=== PATIENT | male | born 1930 | race Hispanic/Latino ===

== ENCOUNTER 2017-04-14 08:08 | Day surgery (SDC) | payer MEDICARE ==
[2016-02-10 08:45] VITALS: BMI 24.0
[2017-04-14] MEDS ORDERED: Lidocaine 2% w Epi 1:100,000 Inj IJ ONE (10:13)
[2017-04-14 11:41] VITALS: BP 128/81; PULSE 73; RESP 18; TEMP 97.8; O2SAT 98
--- NOTE | 2017-04-14 13:23 | PCM.SURG1 ---
Surgeon's Initial Post Op Note - Surgeon's Notes Surgeon: Dr. Rios Clerical Order Filler: Adal PGY1 Type of Anesthesia: Local Pre-Operative Diagnosis: L scalp/R neck/R thigh skin lesions Operative Findings: see operative report Post-Operative Diagnosis: L scalp/R neck/R thigh skin lesions Operation Performed: Excision of L scalp/R neck/R thigh skin lesions Specimen/Specimens Removed: L scalp/R neck/R thigh skin lesions (5 total) Estimated Blood Loss: EBL {In ML}: 5 Blood Products Given: N/A Drains Used: No Drains Post-Op Condition: Good Date of Surgery/Procedure: 04/14/17 Time of Surgery/Procedure: 10:00
--- NOTE | 2017-04-14 20:06 | OP ---
PROCEDURE DATE: 04/14/2017 PREOPERATIVE DIAGNOSIS: Multiple skin lesions, appears to be keratotic areas; one in the scalp, three on the right side of the neck and one on the right anterior mid thigh. FINDINGS: On the scalp, there is a small lesion about 0.5 cm in size with surrounding rough area. This is located on the left frontoparietal area. There were three lesions on the neck area adjacent which are measuring approximately 1 cm in size, the largest one probably about 1 cm. These appears to be keratotic lesions, but there are some melanotic changes, especially the largest one on the most medial aspect. The one on the left thigh is a rough elevated area with a history of persistent or intermittent bleeding. DESCRIPTION OF PROCEDURE: Under local anesthesia, utilizing lidocaine 2% with epinephrine, patient was prepared and draped in usual sterile fashion. First the lesion in the scalp was marked, local anesthetic was injected. A wedge portion of the scalp surrounding the lesion was then excised all the way to the fourth layer of the scalp. The bleeding was controlled with some pressure and then the wound one was closed with multiple subcuticular sutures of 4-0 Monocryl. No bleeding was noted at the end of this part of procedure. Attention was then focused on the three lesions on the side of the neck where a circumferential incision was made around the lesions and the wound closed with a pursestring suture of 4-0 Monocryl. This was done similarly among the three lesions in that area. Attention was then focused on left thigh where a similar procedure was employed. All the lesions were identified as to the locations for identification purposes. Estimated blood loss for the entire procedure probably approximates close to 5 mL. Patient tolerated the procedure well and left the operating room in good condition. Braxton Rios MD
== END 2017-04-14 11:45 | disposition home or self-care (01) ==
LOC: C.SDS 08:08
PROVIDERS: ATTEND Surgery
DX: L82.1 Other seborrheic keratosis (principal)

== ENCOUNTER 2018-01-30 12:27 | Day surgery (SDC) | payer MEDICARE ==
[2018-01-30] MEDS ORDERED: Lidocaine/Epinephrine 1% 1:100000 10 ML IJ ONE (12:50)
[2018-01-30 13:00] VITALS: BMI 24.7
[2018-01-30] MEDS ORDERED: Lidocaine 2% w Epi 1:100,000 Inj IJ ONE (13:23)
[2018-01-30 14:26] VITALS: BP 133/80; PULSE 71; RESP 16; TEMP 97.2; O2SAT 98
--- NOTE | 2018-01-31 01:23 | OP ---
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 FINDINGS: There is a small red ulcerated area located just about level of the clavicle at the base of the neck on the left side, also just above it is a dark keratotic lesion suggestive of seborrheic keratosis which is very superficial. DESCRIPTION OF PROCEDURE: Under local anesthesia utilizing lidocaine 2% with epinephrine, the patient was prepared and draped in a sterile fashion. A wide excision was made on the basal cell carcinoma. Bleeding was controlled pressure. Then, the wound was then closed with interrupted sutures of 4-0 Vicryl subcuticularly. Dermabond was applied on the surface. Attention was then focused on the area of the keratosis on the left side of the neck overlying the external jugular vein. This measures approximately 4 x 5 mm in size. It is slightly elevated. With very low voltage on the electrocautery, the area was then electrocoagulated, and then layer by layer was peeled off the epidermis. No bleeding was noted. The wound was then covered with Dermabond and then dressed. No complications. Braxton Rios MD
== END 2018-01-30 14:15 | disposition home or self-care (01) ==
LOC: C.SDS 12:27
PROVIDERS: ATTEND Surgery
DX: L82.1 Other seborrheic keratosis (principal)

== ENCOUNTER 2018-06-12 11:14 | Observation (INO) | payer MEDICARE ==
--- NOTE | 2018-06-12 11:17 | C.PDOC ---
History Of Present Illness 87 y/o male,w/PMhx of HTN,hypercholesterolemia, CKD, and PAC's, presents to the ER complaining of left shoulder pain s/p fall 1 hr [employer]. Patient states that he was walking in his apartment building lobby when he slipped on some newspapers on the ground. Patient reports that he fell and he hit his left head and left shoulder. He notes that he is concerned his shoulder may be dislocated.Denies having LOC, headache, dizziness, CP,SOB, neck pain, elbow/wrist pain, hip pain,knee pain, and blood thinner use. Time Seen by Provider: 06/12/18 11:17 Chief Complaint (Nursing): Upper Extremity Problem/Injury History Per: Patient History/Exam Limitations: no limitations Onset/Duration Of Symptoms: Hrs Current Symptoms Are (Timing): Still Present Severity: Moderate Past Medical History Reviewed: Historical Data, Nursing Documentation, Vital Signs - Medical History PMH: Arthritis, Cardia Arrhythmia (hx PAC NO LONGER), HTN, Hypercholesterolemia, Chronic Kidney Disease Surgical History: Endoscopy - [facility] Procedures ANESTH INJECT SYMP NERVE (05/12/14) ANGIOPLASTY OF OTHER NON-CORONARY VESSEL(S) (04/09/13) INJECT STEROID (05/12/14) INSEJ [id number] PERIPHERAL NON-CORONARY VES STENT(S) (04/09/13) INSERTION OF ONE VASCULAR STENT (04/09/13) LUMBOSAC SPINE X-RAY NEC (05/12/14) PHYSICAL THERAPY NEC (04/23/14) PROCEDURE ON SINGLE VESSEL (04/09/13) RADICAL EXCIS SKIN LES (06/20/13) RESECTION OF PELVIS LYMPHATIC, PERC ENDO APPROACH (11/30/15) RESECTION OF PROSTATE, PERCUTANEOUS ENDOSCOPIC APPROACH (11/30/15) ROBOTIC ASSISTED PROCEDURE OF TRUNK, PERC ENDO APPROACH (11/30/15) SPINAL CANAL INJECT NEC (05/12/14) SYMPATH NERVE INJECT NEC (05/12/14) Family History: States: No Known Family Hx - Social History Hx Alcohol Use: No Review Of Systems Constitutional: Negative for: Fever, Chills, Weakness, Malaise Eyes: Negative for: Pain, Vision Change ENT: Negative for: Ear Pain, Ear Discharge, Mouth Pain, Mouth Swelling Cardiovascular: Negative for: Chest Pain, Palpitations, Edema Respiratory: Negative for: Cough, Shortness of Breath, SOB with Excertion Gastrointestinal: Negative for: Nausea, Vomiting, Abdominal Pain, Diarrhea, Constipation, Melena, Hematochezia, Hematemesis Genitourinary: Negative for: Dysuria, Frequency Musculoskeletal: Positive for: Shoulder Pain (left shoulder pain). Negative for: Neck Pain Skin: Negative for: Rash, Lesions Neurological: Negative for: Weakness, Numbness, Headache Physical Exam - Physical Exam Appears: Well, Non-toxic, No Acute Distress Skin: Warm, Dry Head: Atraumatic, Normacephalic, No Tenderness, No Swelling, No Abrasion, No Laceration Eye(s): bilateral: Normal Inspection, PERRL, EOMI Nose: Normal Oral Mucosa: Moist Tongue: Normal Appearing Lips: Normal Appearing Teeth: Normal Dentition Gingiva: Normal Appearing Throat: Normal, No Erythema, No Exudate, No Drooling Neck: Normal, Normal ROM, No Midline Cervical Tenderness, Supple, Other (no midline tenderness) Lymphatic: Normal Exam Chest: Symmetrical Cardiovascular: Rhythm Regular, No Edema, No Murmur, No JVD Respiratory: Normal Breath Sounds, No Rales, No Rhonchi, No Wheezing Gastrointestinal/Abdominal: Normal Exam, Soft, No Tenderness, No Distention, No Guarding, No Rebound Back: Normal Inspection, No CVA Tenderness, No Vertebral Tenderness, No Muscle Spasm, No Paraspinal Tenderness Extremity: Tenderness (point tenderness to lateral aspect of left shoulder), No Calf Tenderness, Capillary Refill (normal), No Swelling, Other (n/v intact distally to LUE) Pulses: Left Radial: Normal, Right Radial: Normal Neurological/Psych: Oriented x3, Normal Speech, Normal Cognition, Normal Motor, Normal Sensation Gait: Steady ED Course And Treatment - Laboratory Results Result Diagrams: 06/12/18 11:51 06/12/18 11:51 - Other Rad X-Ray-Left Shoulder X-Ray: Viewed By Me, Read By Radiologist Interpretation: Date of service: 06/12/2018. PROCEDURE: Radiographs of the Left Shoulder. HISTORY: L shoulder pain s/p mech fall. COMPARISON: No prior. FINDINGS: BONES: Humeral head/tuberosity mildly comminuted fractures no displacement greater than 1 to 2 mm in size is suggested. No dislocation noted. Thoracic spondylosis. JOINTS: Glenohumeral and acromioclavicular arthrosis. SOFT TISSUES: Normal. OTHER FINDINGS: None. IMPRESSION: Humeral head tuberosity mildly comminuted fractures without significant displacement. No dis location. Arthrosis as above. Other findings as above. - CT Scan/US CT-Head Other Rad Studies (CT/US): Read By Radiologist, Radiology Report Reviewed CT/US Interpretation: Date of service: 06/12/2018. PROCEDURE: CT HEAD WITHOUT CONTRAST. HISTORY: fall. COMPARISON: None available. TECHNIQUE: Axial computed tomography images were obtained through the head/brain without intravenous contrast. Radiation dose: Total exam DLP = 974.84 mGy-cm. This CT exam was performed using one or more of the following dose reduction techniques: Automated exposure control, adjustment of the mA and/or kV according to patient size, and/or use of iterative reconstruction technique. FINDINGS: HEMORRHAGE: No intracranial hemorrhage. BRAIN: Diffuse atrophy with prominence of the ventricles and sulci noted. No mass effect or edema. Intracranial atherosclerosis. Mild scattered white matter hypodensities, which are no nspecific, but often seen with chronic microvascular ischemic disease. Please note that MRI with diffusion imaging is more sensitive in the detection of acute ischemic event. VENTRICLES: No hydrocephalus. CALVARIUM: Unremarkable. PARANASAL SINUSES: Small mucosal polyp or retention cyst in the right maxillary sinus. The limited visualized paranasal sinuses appear otherwise clear. MASTOID AIR CELLS: Unremarkable as visualized. No inflammatory changes. OTHER FINDINGS: Partial opacification of the external auditory canals, likely cerumen. IMPRESSION: No acute intracranial pathology identified. Findings as above. CT-Upper Extremity Other Rad Studies (CT/US): Read By Radiologist, Radiology Report Reviewed CT/US Interpretation: Date of service: 06/12/2018. PROCEDURE: CT of the left shoulder. HISTORY: Left shoulder pain s/p fall. COMPARISON: Comparison made with prior radiographs left shoulder earlier same day. TECHNIQUE: Contiguous axial images of the left shoulder were obtained. Coronal and sagittal reformats were generated. Radiation dose: Total exam DLP = 426.84 mGy-cm. This CT exam was performed using one or more of the following dose reduction techniques: Automated exposure control, adjustment of the mA and/or kV according to patient size, and/or use of iterative reconstruction technique. FINDINGS: BONES: Redemonstrated is comminuted fracture of the left humeral head and surgical neck.. There is slight dorsal angulation of the larger distal humeral fragment with respect to the humeral head. The left humeral head is appropriately located with respect to the glenoid with no evidence of dislocation.. LEFT HIP JOINT: Unremarkable. No dislocation. No degenerative changes. SOFT TISSUES: There is mild infiltration changes within the surrounding adjacent soft tissues consistent with edema and possibly some post traumatic hemorrhage.. Note is made of mild atelectasis seen in the left lateral lower lung field and left lung base. IMPRESSION: Comminuted fracture of the left humeral head and surgical neck. There is slight dorsal angulation of the larger distal humeral fragment with respect to the humeral head. The left humeral head is appropriately located with respect to the glenoid with no evidence of dislocation. Medical Decision Making Medical Decision Makin87 y/o male,w/PMhx of HTN,hypercholesterolemia, CKD, and PAC's, presents to the ER complaining of left shoulder pain s/p fall 1 hr [employer]. N/V intact distally, no snuffbox pain, wrist pain or elbow pain. L shoulder ttp. Neck clear via nexus. No chest pain or abdominal pain. No hip pain. Good capillary refill. Impression: Left Shoulder Fracture vs. Dislocation Plan: --Labs --CT-Head --X-Ray-Left Shoulder --Morphine IV 1:30pm L Comminuted Shoulder fx, no dislocation on xray Paged Dr. Molina for consult Appreciate consult W/ Dr. Sheets: to admit to his service Pt in [facility], agreeable to plan. remains N/V intact to LUE, good strength 2:30 Appreciate consultation w/ Dr. Molina: CT reccomended. Ct ordered, L shoulder immoblizer ordered pt in NAD, agreeable to plan Disposition - Disposition Disposition: HOSPITALIZED Disposition Time: 13:54 Condition: GOOD - Clinical Impression Clinical Impression: Shoulder fracture, left - Scribe Statement The provider has reviewed the documentation as recorded by the Moe Rodriguez Provider Attestation: All medical record entries made by the Moe were at my direction and personally dictated by me. I have reviewed the chart and agree that the record accurately reflects my personal performance of the history, physical exam, medical decision making, and the department course for this patient. I have also personally directed, reviewed, and agree with the discharge instructions and disposition.
[2018-06-12 11:31] VITALS: BMI 25.4
[2018-06-12] MEDS ORDERED: Morphine 4 MG/ML VIAL ONE ×2 (11:35→13:33)
[2018-06-12 11:57] LABS: BASO % 0.7 % (0.0-2.0); EOS # 0.3 K/uL (0.0-0.7); EOS % 4.2 % (0.0-4.0); HEMOGLOBIN 14.2 g/dL (12.0-18.0); LYMPH # 2.1 K/uL (1.0-4.3); LYMPH % 33.5 % (20.0-40.0); MEAN CELL VOLUME 95.6 fL (80.0-94.0); MEAN CORPUSCULAR HEMOGLOBIN 32.2 pg (27.0-31.0); MEAN CORPUSCULAR HGB CONC 33.7 g/dL (33.0-37.0); MEAN PLATELET VOLUME 7.1 fL (7.2-11.7); MONO # 0.5 K/uL (0.0-0.8); MONO % 8.5 % (0.0-10.0); NEUT # 3.4 K/uL (1.8-7.0); NEUT % 53.1 % (50.0-75.0); NRBC % 0.1 % (0.0-2.0); RBC 4.41 Mil/uL (4.40-5.90); RED CELL DISTRIBUTION WIDTH 12.8 % (11.5-14.5); WHITE BLOOD COUNT 6.4 K/uL (4.8-10.8)
[2018-06-12 12:13] LABS: ALB/GLOB RATIO 1.6 (1.0-2.1); ALBUMIN 4.6 g/dL (3.5-5.0); ALT/SGPT 18 U/L (21-72); AST/SGOT 36 U/L (17-59); BLOOD UREA NITROGEN 15 mg/dL (9-20); CALCIUM 9.6 mg/dl (8.6-10.4); GFR NON-AFRICAN AMERICAN > 60
--- NOTE | 2018-06-12 13:26 | RAD ---
Date of service: 06/12/2018 PROCEDURE: Radiographs of the Left Shoulder HISTORY: L shoulder pain s/p mech fall COMPARISON: No prior. FINDINGS: BONES: Humeral head/tuberosity mildly comminuted fractures no displacement greater than 1 to 2 mm in size is suggested. No dislocation noted. Thoracic spondylosis JOINTS: Glenohumeral and acromioclavicular arthrosis. SOFT TISSUES: Normal. OTHER FINDINGS: None. IMPRESSION: Humeral head tuberosity mildly comminuted fractures without significant displacement. No dislocation. Arthrosis as above. Other findings as above. Comments: Study marked for PA review .
[2018-06-12] MEDS ORDERED: Morphine 4 MG/ML VIAL IV ONE (13:28)
--- NOTE | 2018-06-12 13:38 | CT ---
Date of service: 06/12/2018 PROCEDURE: CT HEAD WITHOUT CONTRAST. HISTORY: fall COMPARISON: None available. TECHNIQUE: Axial computed tomography images were obtained through the head/brain without intravenous contrast. Radiation dose: Total exam DLP = 974.84 mGy-cm. This CT exam was performed using one or more of the following dose reduction techniques: Automated exposure control, adjustment of the mA and/or kV according to patient size, and/or use of iterative reconstruction technique. FINDINGS: HEMORRHAGE: No intracranial hemorrhage. BRAIN: Diffuse atrophy with prominence of the ventricles and sulci noted. No mass effect or edema. Intracranial atherosclerosis. Mild scattered white matter hypodensities, which are nonspecific, but often seen with chronic microvascular ischemic disease. Please note that MRI with diffusion imaging is more sensitive in the detection of acute ischemic event. VENTRICLES: No hydrocephalus. CALVARIUM: Unremarkable. PARANASAL SINUSES: Small mucosal polyp or retention cyst in the right maxillary sinus. The limited visualized paranasal sinuses appear otherwise clear. MASTOID AIR CELLS: Unremarkable as visualized. No inflammatory changes. OTHER FINDINGS: Partial opacification of the external auditory canals, likely cerumen. IMPRESSION: No acute intracranial pathology identified. Findings as above.
[2018-06-12] MEDS ORDERED: Oxycodone/Acetaminophen 5/325 mg Tab PO PRN (15:05)
[2018-06-12 16:05] VITALS: RESP 20
--- NOTE | 2018-06-12 16:35 | CT ---
Date of service: 06/12/2018 PROCEDURE: CT of the left shoulder HISTORY: Left shoulder pain s/p fall COMPARISON: Comparison made with prior radiographs left shoulder earlier same day TECHNIQUE: Contiguous axial images of the left shoulder were obtained. Coronal and sagittal reformats were generated. Radiation dose: Total exam DLP = 426.84 mGy-cm. This CT exam was performed using one or more of the following dose reduction techniques: Automated exposure control, adjustment of the mA and/or kV according to patient size, and/or use of iterative reconstruction technique. FINDINGS: BONES: Redemonstrated is comminuted fracture of the left humeral head and surgical neck.. There is slight dorsal angulation of the larger distal humeral fragment with respect to the humeral head. The left humeral head is appropriately located with respect to the glenoid with no evidence of dislocation.. LEFT HIP JOINT: Unremarkable. No dislocation. No degenerative changes. SOFT TISSUES: There is mild infiltration changes within the surrounding adjacent soft tissues consistent with edema and possibly some post traumatic hemorrhage.. Note is made of mild atelectasis seen in the left lateral lower lung field and left lung base. IMPRESSION: Comminuted fracture of the left humeral head and surgical neck. There is slight dorsal angulation of the larger distal humeral fragment with respect to the humeral head. The left humeral head is appropriately located with respect to the glenoid with no evidence of dislocation.
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
[2018-06-13 08:38] VITALS: BP 105/71; PULSE 72; TEMP 97.8; O2SAT 97
[2018-06-13] MEDS ORDERED: Pneumococcal 23-Valent Vaccine IM ONE ×2 (10:00→14:30)
--- NOTE | 2018-06-13 12:27 | CP.PCM.CON ---
History of Present Illness - History of Present Illness History of Present Illness: Orthopedic consult: Dr. Molina Patient is a RHD 87 y/o male c/o of L shoulder pain following a fall injury in his apartment building at home yesterday. He notes that he tripped and fell onto his left side resulting in severe L shoulder pain. He was taken to [facility] for acute care. He denies any LOC/dizziness. Dr. Molina was consulted for L shoulder fracture. Currently his pain is controlled with PO medications. He denies any radiation of pain/numbness/tingling. He currently denies CP/SOB/N/V/D/fever/dysuria/melena. 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/tobacco/drug use Review of Systems - Review of Systems All systems: reviewed and no additional remarkable complaints except Review of Systems: as per med rec Past Patient History - Past Medical History & Family History Past Medical History?: Yes Past Family History: Reviewed and not pertinent - Past Social History Smoking Status: Never Smoked - CARDIAC Hx Cardia Arrhythmia: Yes (hx PAC NO LONGER) Hx Hypercholesterolemia: Yes Hx Hypertension: Yes - HEENT Hx HEENT Problems: Yes Hx Cataracts: Yes (BILAT IOL) - RENAL Hx Chronic Kidney Disease: Yes - HEMATOLOGICAL/ONCOLOGICAL Hx Blood Disorders: Yes Hx Cancer: Yes (PROSTATE, kidney) - INTEGUMENTARY Hx Dermatological Problems: Yes 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 HX: CYST ON SCALP - MUSCULOSKELETAL/RHEUMATOLOGICAL Hx Arthritis: Yes - GENITOURINARY/GYNECOLOGICAL Hx Genitourinary Disorders: Yes Hx Prostate Cancer: Yes Hx Prostate Problems: Yes (BPH) Other/Comment: BLOOD IN URINE - SURGICAL HISTORY Hx Herniorrhaphy: Yes (x5 as per patient) Other/Comment: Aneurysmectomy. Prostatectomy - ANESTHESIA Hx Anesthesia: Yes Hx Anesthesia Reactions: Yes (vomiting) Hx Malignant Hyperthermia: No Meds Home Medications: Home Medication List Medication Instructions Recorded Confirmed Type traMADol/Acetaminophen [Ultracet 1 tab PO Q6 PRN #60 tab 06/13/18 Rx 325 MG-37.5 MG] Allergies/Adverse Reactions: Allergies Allergy/AdvReac Type Severity Reaction Status Date / Time No Known Allergies Allergy Verified 06/12/18 11:27 - Medications Medications: Current Medications Acetaminophen (Tylenol 325mg Tab) 650 mg PO Q6 PRN PRN Reason: Pain, Mild (1-3) Famotidine (Pepcid) 20 mg PO DAILY [facility] Last Admin: 06/13/18 10:39 Dose: 20 mg Heparin Sodium (Porcine) (Heparin) 5,000 units SC Q8 DIXON Last Admin: 06/13/18 05:37 Dose: 5,000 units Ketorolac Tromethamine (Toradol) 30 mg IVP Q6 PRN PRN Reason: pain Last Admin: 06/13/18 08:18 Dose: 30 mg Morphine Sulfate (Morphine) 2 mg IVP Q4 PRN PRN Reason: Pain, severe (8-10) Last Admin: 06/13/18 02:51 Dose: 2 mg Oxycodone/Acetaminophen (Percocet 5/325 Mg Tab) 1 tab PO Q4H PRN PRN Reason: Pain, moderate (4-7) Stop: 06/15/18 15:06 Last Admin: 06/12/18 23:55 Dose: 1 tab Physical Exam - Constitutional Appears: Well, No Acute Distress - Head Exam Head Exam: ATRAUMATIC, NORMOCEPHALIC - Eye Exam Eye Exam: EOMI, Normal appearance - ENT Exam ENT Exam: Mucous Membranes Moist - Respiratory Exam Respiratory Exam: NORMAL BREATHING PATTERN - Extremities Exam Additional comments: L shoulder: sling in place diffuse shoulder tenderness sensation intact MN/UN/RN motor intact MN/UN/RN radial pulse intact - Neurological Exam Neurological exam: Alert, Oriented x3 - Psychiatric Exam Psychiatric exam: Normal Affect, Normal Mood - Skin Skin Exam: Normal Color, Warm Results - Vital Signs Recent Vital Signs: Last Vital Signs Temp 97.8 F 06/13/18 07:00 Pulse 72 06/13/18 07:00 Resp 20 06/13/18 07:00 BP 105/71 06/13/18 07:00 Pulse Ox 97 06/13/18 07:00 - Labs Result Diagrams: 06/12/18 11:51 06/12/18 11:51 Labs: Laboratory Results - last 24 hr 06/12/18 11:51 Blood Type O POSITIVE Antibody Screen Negative - Impressions Impression: Accession No. : [id number] Patient Name / ID : COURTNEY DIOR J / [id number] Exam Date : 06/12/2018 11:34:13 ( Approved ) Study Comment : Sex / Age : M / 87Y Creator : Jerry Diamond Dictator : HaysBronwyn Daimond Sign Carpenter : Event Av Operator : Diamond Edwards Approver2 : Report Date : 06/12/2018 13:21:33 My Comment : Date of service: 06/12/2018 PROCEDURE: Radiographs of the Left Shoulder HISTORY: L shoulder pain s/p mech fall COMPARISON: No prior. FINDINGS: BONES: Humeral head/tuberosity mildly comminuted fractures no displacement greater than 1 to 2 mm in size is suggested. No dislocation noted. Thoracic spondylosis JOINTS: Glenohumeral and acromioclavicular arthrosis. SOFT TISSUES: Normal. OTHER FINDINGS: None. IMPRESSION: Humeral head tuberosity mildly comminuted fractures without significant displacement. No dislocation. Arthrosis as above. Other findings as above. Comments: Study marked for PA review . Accession No. : [id number] Patient Name / ID : COURTNEY DIOR J / [id number] Exam Date : 06/12/2018 15:33:49 ( Approved ) Study Comment : Sex / Age : M / 87Y Creator : Suyapa Macdonald Dictator : Amauri Nathan MD Sign Carpenter : Event Av Operator : Amauri Nathan MD Approver2 : Report Date : 06/12/2018 15:46:59 My Comment : Date of service: 06/12/2018 PROCEDURE: CT of the left shoulder HISTORY: Left shoulder pain s/p fall COMPARISON: Comparison made with prior radiographs left shoulder earlier same day TECHNIQUE: Contiguous axial images of the left shoulder were obtained. Coronal and sagittal reformats were generated. Radiation dose: Total exam DLP = 426.84 mGy-cm. This CT exam was performed using one or more of the following dose reduction techniques: Automated exposure control, adjustment of the mA and/or kV according to patient size, and/or use of iterative reconstruction technique. FINDINGS: BONES: Redemonstrated is comminuted fracture of the left humeral head and surgical neck.. There is slight dorsal angulation of the larger distal humeral fragment with respect to the humeral head. The left humeral head is appropriately located with respect to the glenoid with no evidence of dislocation.. LEFT HIP JOINT: Unremarkable. No dislocation. No degenerative changes. SOFT TISSUES: There is mild infiltration changes within the surrounding adjacent soft tissues consistent with edema and possibly some post traumatic hemorrhage.. Note is made of mild atelectasis seen in the left lateral lower lung field and left lung base. IMPRESSION: Comminuted fracture of the left humeral head and surgical neck. There is slight dorsal angulation of the larger distal humeral fragment with respect to the hu meral head. The left humeral head is appropriately located with respect to the glenoid with no evidence of dislocation. Assessment & Plan (1) Shoulder fracture, left Assessment and Plan: Patient with left comminuted humeral head fracture -Dr. Molina recommends conservative management with immobilization in sling -NWB LUE -pain control -ice for swelling -orthopedically stable for discharge -f/u in office within 7-10 days -above d/w Dr. Molina in agreement Status: Acute
== END 2018-06-13 15:32 | disposition home or self-care (01) ==
LOC: C.ER 11:14 → C.6T 13:53
PROVIDERS: ADMIT Internal Medicine; ATTEND Internal Medicine
DX: S42.255A Nondisplaced fracture of greater tuberosity of left humerus, initial encounter for closed fracture (principal); W01.0XXA Fall on same level from slipping, tripping and stumbling without subsequent striking against object, initial encounter; N18.9 Chronic kidney disease, unspecified; N40.0 Benign prostatic hyperplasia without lower urinary tract symptoms; Z90.5 Acquired absence of kidney; Z85.46 Personal history of malignant neoplasm of prostate; M19.90 Unspecified osteoarthritis, unspecified site; E78.00 Pure hypercholesterolemia, unspecified; I12.9 Hypertensive chronic kidney disease with stage 1 through stage 4 chronic kidney disease, or unspecified chronic kidney disease
CPT/HCPCS: 70450; 73030; 73200; 80053; 85025; 86850; 86900; 90732; 96374; 97116; 97162; 97166; 97530; 99285; G0009; G0378; G8978; G8979; G8987; G8988; J1644; J1885; J2270